=== PATIENT | male | born 1955 | race Caucasian/White ===

== ENCOUNTER 2022-08-28 08:47 | Outpatient (CLI) | payer MEDICARE, OTHER | END 2022-08-28 23:59 | disposition home or self-care (01) | LOC: 64 CT 08:47 | PROVIDERS: ATTEND Orthopaedic Surgery | DX: M43.22 Fusion of spine, cervical region (principal); M47.812 Spondylosis without myelopathy or radiculopathy, cervical region; M48.02 Spinal stenosis, cervical region; M50.30 Other cervical disc degeneration, unspecified cervical region; M25.78 Osteophyte, vertebrae | CPT/HCPCS: 72125; 72141 ==